=== PATIENT | male | born 1970 | race Caucasian/White ===

== ENCOUNTER 2019-06-19 18:18 | Inpatient (IN) | payer BC ==
[2019-06-19 18:31] VITALS: BMI 22.8
--- NOTE | 2019-06-19 18:33 | PDOC ---
Rapid Medical Evaluation Chief Complaint: Choking Sensation Time Seen by Provider: 06/19/19 18:28 Medical Evaluation: 06/19/19 18:29 I have performed a brief in-person evaluation of this patient. The patient presents with a chief complaint of:unable to swallow secretions after swallowing whole grape Pertinent physical exam findings: spitting but able to drink fluids I have ordered the following: soft tissue neck The patient will proceed to the ED for further evaluation. 06/19/19 18:32 Discharge Disposition - Diagnosis Sensation, choking - Referrals - Patient Instructions - Post Discharge Activity
[2019-06-19] MEDS ORDERED: GlUCAGON HUMAN RECOMBINANT 1 MG/VIAL IVPUSH ONE (19:55)
--- NOTE | 2019-06-19 19:57 | PDOC ---
History of Present Illness - General Chief Complaint: Choking Sensation Stated Complaint: CHOCKING SENSATION Time Seen by Provider: 06/19/19 18:28 - History of Present Illness Initial Comments: 06/19/19 19:56 49-year-old male without comorbidities has a sensation of a foreign body in his esophagus. Patient states she swallowed a whole grape and is unable to hold his secretions down. Past History - Past Medical History Allergies/Adverse Reactions: Allergies Allergy/AdvReac Type Severity Reaction Status Date / Time No Known Allergies Allergy Verified 06/19/19 18:31 COPD: No - Psycho Social/Smoking Cessation Hx Smoking History: Never smoked Hx Alcohol Use: Yes Drug/Substance Use Hx: No Review of Systems - Review of Systems ABD/GI: Yes: Vomiting *Physical Exam - Vital Signs Last Vital Signs Temp Pulse Resp BP Pulse Ox 98.2 F 67 16 136/89 96 06/19/19 18:27 06/19/19 18:27 06/19/19 18:27 06/19/19 18:27 06/19/19 18:27 - Physical Exam Comments: 06/19/19 19:57 GENERAL: The patient is awake, alert, and fully oriented, in no acute distress. HEAD: Normal with no signs of trauma. EYES: sclera anicteric, conjunctiva clear. ENT: Ears normal NECK: Normal range of motion LUNGS: Breath sounds equal, clear to auscultation bilaterally. No wheezes, and no crackles. HEART: S1 and S2 without murmur, rub or gallop. ABDOMEN: Soft, nontender, normoactive bowel sounds. No guarding, no rebound. No masses. EXTREMITIES: Normal range of motion, no edema. No clubbing or cyanosis. No cords, erythema, or tenderness. NEUROLOGICAL: Cranial nerves II through XII grossly intact. Normal speech, normal gait. PSYCH: Normal mood, normal affect. SKIN: Warm, Dry, normal turgor, no rashes or lesions noted. Medical Decision Making - Medical Decision Making 06/19/19 19:57 Glucagon ordered, case discussed with ER attending 06/19/19 21:20 No relief after second dose of glucagon GI on-call phoned 06/19/19 21:30 Patient admitted to GI for emergent endoscopy Discharge - Discharge Information Problems reviewed: Yes Clinical Impression/Diagnosis: Sensation, choking Condition: Guarded - Admission No - Follow up/Referral Referrals: ON STAFF,NOT [Primary Care Provider] - - Patient Discharge Instructions - Post Discharge Activity
[2019-06-19] MEDS ORDERED: GlUCAGON HUMAN RECOMBINANT 1 MG/VIAL ONE ×2 (20:05→20:52)
[2019-06-19] MEDS ORDERED: GLUCAGON 1 MG KIT IVPUSH ONE (20:49)
--- NOTE | 2019-06-19 21:32 | PDOC ---
History of Present Illness - General Chief Complaint: Choking Sensation Stated Complaint: CHOCKING SENSATION Time Seen by Provider: 06/19/19 18:28 - History of Present Illness Initial Comments: 06/19/19 21:31 Error on prior chart patient is being admitted Past History - Past Medical History Allergies/Adverse Reactions: Allergies Allergy/AdvReac Type Severity Reaction Status Date / Time No Known Allergies Allergy Verified 06/19/19 18:31 COPD: No - Psycho Social/Smoking Cessation Hx Smoking History: Never smoked Hx Alcohol Use: Yes Drug/Substance Use Hx: No Review of Systems - Review of Systems ABD/GI: Yes: Vomiting *Physical Exam - Vital Signs Last Vital Signs Temp Pulse Resp BP Pulse Ox 98.2 F 67 16 136/89 96 06/19/19 18:27 06/19/19 18:27 06/19/19 18:27 06/19/19 18:27 06/19/19 18:27 - Physical Exam Comments: 06/19/19 21:31 GENERAL: The patient is awake, alert, and fully oriented, in no acute distress. HEAD: Normal with no signs of trauma. EYES: sclera anicteric, conjunctiva clear. ENT: Ears normal NECK: Normal range of motion LUNGS: Breath sounds equal, clear to auscultation bilaterally. No wheezes, and no crackles. HEART: S1 and S2 without murmur, rub or gallop. ABDOMEN: Soft, nontender, normoactive bowel sounds. No guarding, no rebound. No masses. EXTREMITIES: Normal range of motion, no edema. No clubbing or cyanosis. No cords, erythema, or tenderness. NEUROLOGICAL: Cranial nerves II through XII grossly intact. Normal speech, normal gait. PSYCH: Normal mood, normal affect. SKIN: Warm, Dry, normal turgor, no rashes or lesions noted. ED Treatment Course - RADIOLOGY Radiology Studies Ordered: Category Date Time Status CHEST PA & LAT [RAD] Stat Radiology 06/19/19 21:29 Ordered - Medications Given in the ED: ED Medications Discontinued Medications Generic Name Dose Route Start Last Admin Trade Name Freq PRN Reason Stop Dose Admin Glucagon 0.5 mg 06/19/19 19:55 06/19/19 20:13 Glucagon - IVPUSH 06/19/19 19:56 0.5 mg ONCE ONE Administration Glucagon 1 mg 06/19/19 20:49 06/19/19 20:59 Glucagon - IVPUSH 06/19/19 20:50 1 mg ONCE ONE Administration Medical Decision Making - Medical Decision Making 06/19/19 21:32 Error on prior chart patient is being admitted Discharge - Discharge Information Problems reviewed: Yes Clinical Impression/Diagnosis: Sensation, choking Condition: Guarded - Admission Yes - Follow up/Referral Referrals: ON STAFF,NOT [Primary Care Provider] - - Patient Discharge Instructions - Post Discharge Activity
[2019-06-19 21:54] LABS: BASO % 1.3 % (0-2.0); EOS % 0.1 % (0-4.5); HEMATOCRIT 43.8 % (35.4-49); HEMOGLOBIN 14.7 GM/dL (11.7-16.9); MCH 30.3 pg (25.7-33.7); MCHC 33.7 g/dl (32.0-35.9); MEAN PLT VOLUME 9.9 fl (7.5-11.1); MONO % 3.2 % (3.8-10.2); NEUT % 86.4 % (42.8-82.8); PLATELET COUNT 243 K/MM3 (134-434); RBC 4.86 M/mm3 (4.00-5.60); WHITE BLOOD COUNT 13.8 K/mm3 (4.0-10.0)
--- NOTE | 2019-06-19 22:03 | PDOC ---
History of Present Illness - General Chief Complaint: Choking Sensation Stated Complaint: CHOCKING SENSATION Time Seen by Provider: 06/19/19 18:28 - History of Present Illness Initial Comments: 06/19/19 22:02 See prior note reason for this note is admitting doctor has changed Past History - Past Medical History Allergies/Adverse Reactions: Allergies Allergy/AdvReac Type Severity Reaction Status Date / Time No Known Allergies Allergy Verified 06/19/19 18:31 COPD: No - Psycho Social/Smoking Cessation Hx Smoking History: Never smoked Hx Alcohol Use: Yes Drug/Substance Use Hx: No Review of Systems - Review of Systems ABD/GI: Yes: Vomiting *Physical Exam - Vital Signs Last Vital Signs Temp Pulse Resp BP Pulse Ox 98.2 F 67 16 136/89 96 06/19/19 18:27 06/19/19 18:27 06/19/19 18:27 06/19/19 18:27 06/19/19 18:27 - Physical Exam Comments: 06/19/19 22:02 See prior note reason for this note admitting doctors change ED Treatment Course - LABORATORY CBC & Chemistry Diagram: 06/19/19 21:40 06/19/19 21:40 - ADDITIONAL ORDERS Additional order review: 06/19/19 21:40 RBC 4.86 MCV 90.0 MCHC 33.7 RDW 13.0 MPV 9.9 Neutrophils % 86.4 H Lymphocytes % 9.0 Monocytes % 3.2 L Eosinophils % 0.1 Basophils % 1.3 - RADIOLOGY Radiology Studies Ordered: Category Date Time Status CHEST PA & LAT [RAD] Stat Radiology 06/19/19 21:29 Ordered - Medications Given in the ED: ED Medications Discontinued Medications Generic Name Dose Route Start Last Admin Trade Name Flaquita PRN Reason Stop Dose Admin Glucagon 0.5 mg 06/19/19 19:55 06/19/19 20:13 Glucagon - IVPUSH 06/19/19 19:56 0.5 mg ONCE ONE Administration Glucagon 1 mg 06/19/19 20:49 06/19/19 20:59 Glucagon - IVPUSH 06/19/19 20:50 1 mg ONCE ONE Administration Discharge - Discharge Information Problems reviewed: Yes Clinical Impression/Diagnosis: Sensation, choking Condition: Guarded - Admission Yes - Follow up/Referral Referrals: ON STAFF,NOT [Primary Care Provider] - - Patient Discharge Instructions - Post Discharge Activity
[2019-06-19 22:05] LABS: INR 1.11 (0.83-1.09); PROTHROMBIN TIME (PATIENT) 13.1 SEC (9.7-13.0)
--- NOTE | 2019-06-19 22:16 | CON.GI ---
Consult Consult Specialty:: Gastroenterology Referred by:: YUKO Luke Reason for Consultation:: Food impaction - History of Present Illness Chief Complaint: Unable to swallow anything History of Present Illness: This 49M accidently swallowed a whole grape without chewing about 5:30PM. Since then he has been unable to swallow and has the sensation that something is stuck in his lower chest. He denies a cardiac history and is not dyspneic. He has chronic swallowing difficulties and had an EGD with Dr. Perez at the [facility] several years ago which he was told was completely normal. Nothing has ever become so stuck that he could not pass it with repeated swallow. He denies chronic heartburn. He has had two colonoscopies with Dr Perez with polyps being removed during the last exam. His grandfather had colon cancer. - History Source History Provided By: Patient Limitations to Obtaining History: No Limitations - Past Medical History Cardio/Vascular: Yes: Hyperlipdemia Gastrointestinal: Yes: Other (chronic dysphagia and colon polyps) - Past Surgical History Past Surgical History: Yes: None - Alcohol/Substance Use Hx Alcohol Use: Yes (wine every other day) History of Substance Use: reports: None - Smoking History Smoking history: Former smoker If you are a former smoker, when did you quit?: 1994 - Social History Usual Living Arrangement: With Spouse ADL: Independent Occupation: [employer] Place of : Other ([facility] [employer]) Came to .S. (year): age 29 Home Medications - Allergies Allergies/Adverse Reactions: Allergies Allergy/AdvReac Type Severity Reaction Status Date / Time No Known Allergies Allergy Verified 06/19/19 18:31 Family Medical History Family Hx Nuerologic Problems: Mother (had a CVA) Review of Systems - Review of Systems Constitutional: reports: No Symptoms Eyes: reports: No Symptoms HENT: reports: No Symptoms Neck: reports: No Symptoms Cardiovascular: reports: No Symptoms Respiratory: reports: No Symptoms Gastrointestinal: reports: Dysphagia Genitourinary: reports: No Symptoms Musculoskeletal: reports: No Symptoms Neurological: reports: No Symptoms Physical Exam-GI Vital Signs: Vital Signs Temperature 98.2 F 06/19/19 18:27 Pulse Rate 67 06/19/19 18:27 Respiratory Rate 16 06/19/19 18:27 Blood Pressure 136/89 06/19/19 18:27 O2 Sat by Pulse Oximetry (%) 96 06/19/19 18:27 Constitutional: Yes: Anxious Eyes: Yes: Conjunctiva Clear HENT: Yes: Normocephalic Neck: Yes: Trachea Midline Cardiovascular: Yes: Regular Rate and Rhythm Respiratory: Yes: CTA Bilaterally Gastrointestinal Inspection: Yes: WNL ...Auscultate: Yes: Normoactive Bowel Sounds ...Palpate: Yes: Soft, Other (nontender) ...Rectal Exam: Yes: Deferred Edema: No Neurological: Yes: Alert, Oriented Labs: CBC, BMP 06/19/19 21:40 INR, PTT INR 1.11 (0.83-1.09) H 06/19/19 21:40 Problem List - Problems (1) Food impaction of esophagus Code(s): T18.128A - FOOD IN ESOPHAGUS CAUSING OTHER INJURY, INITIAL ENCOUNTER Assessment/Plan Assessment - Esophageal obstruction by a grape. His history suggests eosinophilic esophagitis but he may have a Schatzki ring, stricture, achalasia ... Plan: - EGD YUNG. I have discussed EGD with food extraction in detail with Jeniffer and informed him of the risks of perforation, hemorrhage and aspiration. After I answered his questions he signed an informed consent. - NPO until then - Preop EKG, CXR and bloods ordered
[2019-06-19 22:25] LABS: ALBUMIN 4.7 g/dl (3.4-5.0); BILIRUBIN,TOTAL 1.5 mg/dL (0.2-1); CALCIUM 9.6 mg/dL (8.5-10.1); POTASSIUM 3.9 mmol/L (3.5-5.1)
[2019-06-19] MEDS ORDERED: PROPOFOL 20 ML ONE (23:06)
--- NOTE | 2019-06-19 23:46 | PN ---
Progress Note (short form) - Note Progress Note: GI Procedure NOte: Please see EGD report placed into the chart. The grape passed before the scope arrived, possibly due to esophageal relaxation under GET. A Schatzki ring and reflux esophagitis was found above a medium sized sliding hiatal hernia. Will order solids for breakfast. If tolerated can be discharged with referral to my office or to Dr Perez to arrange repeat EGD for dilation of the ring. Please discharge with pantoprazole and gaviscon. The findings will be discussed with the patient shortly with an emphasis on antireflux measures and to chew carefully. Problem List - Problems (1) Food impaction of esophagus Code(s): T18.128A - FOOD IN ESOPHAGUS CAUSING OTHER INJURY, INITIAL ENCOUNTER
[2019-06-20] MEDS ORDERED: MAG HYDROX/AL HYDROX/SIMETH 30 ML UNIT-DOSE CUP PO PRN
[2019-06-20] MEDS ORDERED: ACETAMINOPHEN 325 MG TABLET (FP) PO PRN (00:02)
[2019-06-20] MEDS ORDERED: DEXTROSE 5%-0.45% SALINE 1,000 ML IV SCH (00:15)
--- NOTE | 2019-06-20 07:39 | HP ---
CHIEF COMPLAINT: Sensation of foreign body in esophagus PCP: HISTORY OF PRESENT ILLNESS: Pt is a 49 y/o M with no significant past medical history who presented yesterday evening to [facility] due to difficulty swallowing. Pt endorses that around 5 pm yesterday he swallowed a whole grape and since then has not been able to hold his secretions down; pt states he felt a sensation of something geting lodged within his chest. Does endorse a history of swallowing problems but was never formally diagnosed with any GI pathology. Denies any other symptoms including headache, nausea/vomiting, chest pain, shortness of breath or fevers. This is the first time this has happened to him. PMH None SocialHx- Denies Tobacco use. Social Drinker SurgHx- Denies FH- Mother 2 CVAs, HLD NKDA ER course was notable for: (1) Glucagon x2 (2) (3) HOME MEDICATIONS: REVIEW OF SYSTEMS CONSTITUTIONAL: Absent: fever, chills, diaphoresis, generalized weakness, malaise, loss of appetite, weight change HEENT: Absent: rhinorrhea, nasal congestion, throat pain, throat swelling, difficulty swallowing, mouth swelling, ear pain, eye pain, visual changes CARDIOVASCULAR: Absent: chest pain, syncope, palpitations, irregular heart rate, lightheadedness , peripheral edema RESPIRATORY: Absent: cough, shortness of breath, dyspnea with exertion, orthopnea, wheezing, stridor, hemoptysis GASTROINTESTINAL: Absent: abdominal pain, abdominal distension, nausea, vomiting, diarrhea, constipation, melena, hematochezia GENITOURINARY: Absent: dysuria, frequency, urgency, hesitancy, hematuria, flank pain, genital pain MUSCULOSKELETAL: Absent: myalgia, arthralgia, joint swelling, back pain, neck pain SKIN: Absent: rash, itching, pallor HEMATOLOGIC/IMMUNOLOGIC: Absent: easy bleeding, easy bruising, lymphadenopathy, frequent infections ENDOCRINE: Absent: unexplained weight gain, unexplained weight loss, heat intolerance, cold intolerance NEUROLOGIC: Absent: headache, focal weakness or paresthesias, dizziness, unsteady gait, seizure, mental status changes, bladder or bowel incontinence PSYCHIATRIC: Absent: anxiety, depression, suicidal or homicidal ideation, hallucinations. PHYSICAL EXAMINATION Vital Signs - 24 hr 06/19/19 06/19/19 06/19/19 18:27 22:40 23:35 Temperature 98.2 F 97.7 F Pulse Rate 67 64 Respiratory 16 16 Rate Blood Pressure 136/89 135/85 O2 Sat by Pulse 96 98 97 Oximetry (%) 06/19/19 06/20/19 06/20/19 23:50 00:05 00:40 Temperature 97.7 F Pulse Rate 66 63 Respiratory 16 16 16 Rate Blood Pressure 130/76 135/85 O2 Sat by Pulse 97 97 Oximetry (%) 06/20/19 04:50 Temperature 98.6 F Pulse Rate 48 L Respiratory 20 Rate Blood Pressure 119/67 O2 Sat by Pulse Oximetry (%) GENERAL: NAD HEAD: AT/NC EYES: EOMI Sclera Clear EARS, NOSE, THROAT: MMM NECK: Normal range of motion, supple. LUNGS: CTA b/l no wheezing rhonchi or rales HEART: RRR S1S2 ABDOMEN: Soft NDNT LOWER EXTREMITIES: No peripheral edema. NEUROLOGICAL: Cranial nerves II-XII intact. Normal speech. SKIN: Warm, dry Laboratory Results - last 24 hr 06/19/19 06/19/19 06/19/19 21:40 21:40 21:40 WBC 13.8 H RBC 4.86 Hgb 14.7 Hct 43.8 MCV 90.0 MCH 30.3 MCHC 33.7 RDW 13.0 Plt Count 243 MPV 9.9 Absolute Neuts (auto) 11.9 H Neutrophils % 86.4 H Lymphocytes % 9.0 Monocytes % 3.2 L Eosinophils % 0.1 Basophils % 1.3 Nucleated RBC % 0 PT with INR 13.10 H INR 1.11 H Sodium 136 Potassium 3.9 Chloride 102 Carbon Dioxide 27 Anion Gap 6 L BUN 20.0 H Creatinine 1.0 Est GFR (CKD-EPI)AfAm 100.55 Est GFR (CKD-EPI)NonAf 86.76 Random Glucose 229 H Calcium 9.6 Total Bilirubin 1.5 H AST 24 ALT 37 Alkaline Phosphatase 65 Total Protein 8.0 Albumin 4.7 Blood Type Antibody Screen 06/19/19 21:40 WBC RBC Hgb Hct MCV MCH MCHC RDW Plt Count MPV Absolute Neuts (auto) Neutrophils % Lymphocytes % Monocytes % Eosinophils % Basophils % Nucleated RBC % PT with INR INR Sodium Potassium Chloride Carbon Dioxide Anion Gap BUN Creatinine Est GFR (CKD-EPI)AfAm Est GFR (CKD-EPI)NonAf Random Glucose Calcium Total Bilirubin AST ALT Alkaline Phosphatase Total Protein Albumin Blood Type A POSITIVE Antibody Screen Negative ASSESSMENT/PLAN: Pt is a 49 y/o M with no significant past medical history who presented yesterday evening to [facility] due to difficulty swallowing. #Food impaction of Esophagus -Pt with history of swallowing hole grape -Glucagon x 2 given to patient without relief -Emergent endoscopy performed. Grape passed prior to scope entry. -GI Dr Contreras on board. -Pt to be discharged on Pantoprazole and Gaviscon. #FEN D51/2NS@125cc/hr Monitor Electrolytes Soft Diet DVT ppx; EAM Dispo: D/C today Visit type - Emergency Visit Emergency Visit: Yes ED Registration Date: 06/19/19 Care time: The patient presented to the Emergency Department on the above date and was hospitalized for further evaluation of their emergent condition. - New Patient This patient is new to me today: Yes Date on this admission: 06/20/19 - Critical Care Critical Care patient: No ATTENDING PHYSICIAN STATEMENT I saw and evaluated the patient. I reviewed the resident's note and discussed the case with the resident. I agree with the resident's findings and plan as documented. SUBJECTIVE: OBJECTIVE: ASSESSMENT AND PLAN:
[2019-06-20 09:06] LABS: BASO % 0.6 % (0-2.0); EOS % 0.6 % (0-4.5); HEMATOCRIT 39.1 % (35.4-49); HEMOGLOBIN 13.6 GM/dL (11.7-16.9); LYMPH % 23.7 % (8-40); MCH 31.1 pg (25.7-33.7); MCHC 34.8 g/dl (32.0-35.9); MEAN CELL VOLUME 89.4 fl (80-96); MEAN PLT VOLUME 9.8 fl (7.5-11.1); MONO % 7.8 % (3.8-10.2); NEUT % 67.3 % (42.8-82.8); PLATELET COUNT 215 K/MM3 (134-434); RBC 4.38 M/mm3 (4.00-5.60); RDW 12.9 % (11.9-15.9); WHITE BLOOD COUNT 8.9 K/mm3 (4.0-10.0)
[2019-06-20 09:29] LABS: BLOOD UREA NITROGEN 17.2 mg/dL (7-18); CALCIUM 9.5 mg/dL (8.5-10.1); CREATININE 0.8 mg/dL (0.55-1.3); POTASSIUM 4.2 mmol/L (3.5-5.1)
[2019-06-20] MEDS ORDERED: PANTOPRAZOLE SODIUM 40 MG VIAL IVPUSH SCH (10:00)
[2019-06-20 10:01] VITALS: BP 117/64; PULSE 63; TEMP 98.5
--- NOTE | 2019-06-20 10:47 | EKG ---
Test Reason : Blood Pressure : / mmHG Vent. Rate : 057 BPM Atrial Rate : 057 BPM P-R Int : 160 ms QRS Dur : 096 ms QT Int : 432 ms P-R-T Axes : 050 019 022 degrees QTc Int : 420 ms SINUS BRADYCARDIA OTHERWISE NORMAL ECG NO PREVIOUS ECGS AVAILABLE Confirmed by ALLAN GILMAN, JEZ ([id number]) on 06/20/2019 10:47:22 AM Referred By: Confirmed By:JEZ LEMUS MD
--- NOTE | 2019-06-20 16:27 | PN ---
Teaching Attending Note Name of Resident: Nicanor Mcrae ATTENDING PHYSICIAN STATEMENT I saw and evaluated the patient. I reviewed the resident's note and discussed the case with the resident. I agree with the resident's findings and plan as documented. SUBJECTIVE: Feels great. No further globus sensation/impaction/regurgitation/ nausea/vomiting. OBJECTIVE: Afebrile, hemodynamically Stable. Last Vital Signs Temp Pulse Resp BP Pulse Ox 98.5 F 63 20 117/64 98 06/20/19 09:00 06/20/19 09:00 06/20/19 09:00 06/20/19 09:00 06/20/19 09:00 HEENT - Atraumatic, Normocephalic. Heart - S1, S2, RRR Lungs - clear to auscultation. No calf swelling/tenderness. Abdomen - Soft, non-tender. Bowel Sounds normal. Extremities - no edema, no calf tenderness. Laboratory Results - last 24 hr 06/19/19 06/19/19 06/19/19 21:40 21:40 21:40 WBC 13.8 H RBC 4.86 Hgb 14.7 Hct 43.8 MCV 90.0 MCH 30.3 MCHC 33.7 RDW 13.0 Plt Count 243 MPV 9.9 Absolute Neuts (auto) 11.9 H Neutrophils % 86.4 H Lymphocytes % 9.0 Monocytes % 3.2 L Eosinophils % 0.1 Basophils % 1.3 Nucleated RBC % 0 PT with INR 13.10 H INR 1.11 H Sodium 136 Potassium 3.9 Chloride 102 Carbon Dioxide 27 Anion Gap 6 L BUN 20.0 H Creatinine 1.0 Est GFR (CKD-EPI)AfAm 100.55 Est GFR (CKD-EPI)NonAf 86.76 Random Glucose 229 H Calcium 9.6 Total Bilirubin 1.5 H AST 24 ALT 37 Alkaline Phosphatase 65 Total Protein 8.0 Albumin 4.7 Blood Type Antibody Screen 06/19/19 06/20/19 06/20/19 21:40 07:25 07:25 WBC 8.9 RBC 4.38 Hgb 13.6 Hct 39.1 MCV 89.4 MCH 31.1 MCHC 34.8 RDW 12.9 Plt Count 215 MPV 9.8 Absolute Neuts (auto) 6.0 Neutrophils % 67.3 D Lymphocytes % 23.7 D Monocytes % 7.8 D Eosinophils % 0.6 D Basophils % 0.6 Nucleated RBC % 0 PT with INR INR Sodium Potassium Chloride Carbon Dioxide Anion Gap BUN Creatinine Est GFR (CKD-EPI)AfAm Est GFR (CKD-EPI)NonAf Random Glucose Calcium Total Bilirubin AST ALT Alkaline Phosphatase Total Protein Albumin Blood Type A POSITIVE A POSITIVE Antibody Screen Negative 06/20/19 07:25 WBC RBC Hgb Hct MCV MCH MCHC RDW Plt Count MPV Absolute Neuts (auto) Neutrophils % Lymphocytes % Monocytes % Eosinophils % Basophils % Nucleated RBC % PT with INR INR Sodium 139 Potassium 4.2 Chloride 104 Carbon Dioxide 28 Anion Gap 7 L BUN 17.2 Creatinine 0.8 Est GFR (CKD-EPI)AfAm 119.88 Est GFR (CKD-EPI)NonAf 103.43 Random Glucose 105 Calcium 9.5 Total Bilirubin AST ALT Alkaline Phosphatase Total Protein Albumin Blood Type Antibody Screen Discharge Medications Medication Instructions Recorded Pantoprazole Sodium [Protonix] 40 mg PO DAILY #30 tablet. 09/01/15 Mag Carb/Aluminum Hydrox/Algin 15 - 30 ml PO Q6H PRN #355 oz 06/20/19 [Gaviscon Liquid] Pantoprazole Sodium [Protonix -] 40 mg PO DAILY #30 tablet.ec 06/20/19 ASSESSMENT AND PLAN: 49 year old male with no significant PMH presented with difficulty swallowing and mid-esophageal pain/fullness due to esophageal food impaction. Esophageal Food Impaction sec to Schatzki's Ring at GE junction s/p Glucagon x 2. s/p EGD showing medum sliding hiatal hernia, Schatzki's ring, esophagitis (Bx taken to exclude eosinophilic esophagitis), food passed prior to scope insertion it appears. patient able to eat solids without discomfort or impaction post EGD and again this AM Medically stable for discharge home with GI follow up. GI recommends Gaviscon, PPI on DC with repeat EGD in 1 month.
--- NOTE | 2019-06-20 16:34 | DS ---
Physical Exam: SUBJECTIVE: Patient seen and examined this am. Feeling much better. Denies any complaints at this time. OBJECTIVE: Vital Signs Period Temp Pulse Resp BP Sys/Calixto Pulse Ox Last 24 Hr 97.7 F-98.6 F 48-67 16-20 117-136/64-89 96-98 PHYSICAL EXAM GENERAL: NAD HEAD: AT/NC EYES: EOMI Sclera Clear EARS, NOSE, THROAT: MMM NECK: Normal range of motion, supple. LUNGS: CTA b/l no wheezing rhonchi or rales HEART: RRR S1S2 ABDOMEN: Soft NDNT LOWER EXTREMITIES: No peripheral edema. NEUROLOGICAL: Cranial nerves II-XII intact. Normal speech. SKIN: Warm, dry LABS Laboratory Results - last 24 hr 06/19/19 06/19/19 06/19/19 21:40 21:40 21:40 WBC 13.8 H RBC 4.86 Hgb 14.7 Hct 43.8 MCV 90.0 MCH 30.3 MCHC 33.7 RDW 13.0 Plt Count 243 MPV 9.9 Absolute Neuts (auto) 11.9 H Neutrophils % 86.4 H Lymphocytes % 9.0 Monocytes % 3.2 L Eosinophils % 0.1 Basophils % 1.3 Nucleated RBC % 0 PT with INR 13.10 H INR 1.11 H Sodium 136 Potassium 3.9 Chloride 102 Carbon Dioxide 27 Anion Gap 6 L BUN 20.0 H Creatinine 1.0 Est GFR (CKD-EPI)AfAm 100.55 Est GFR (CKD-EPI)NonAf 86.76 Random Glucose 229 H Calcium 9.6 Total Bilirubin 1.5 H AST 24 ALT 37 Alkaline Phosphatase 65 Total Protein 8.0 Albumin 4.7 Blood Type Antibody Screen 06/19/19 06/20/19 06/20/19 21:40 07:25 07:25 WBC 8.9 RBC 4.38 Hgb 13.6 Hct 39.1 MCV 89.4 MCH 31.1 MCHC 34.8 RDW 12.9 Plt Count 215 MPV 9.8 Absolute Neuts (auto) 6.0 Neutrophils % 67.3 D Lymphocytes % 23.7 D Monocytes % 7.8 D Eosinophils % 0.6 D Basophils % 0.6 Nucleated RBC % 0 PT with INR INR Sodium Potassium Chloride Carbon Dioxide Anion Gap BUN Creatinine Est GFR (CKD-EPI)AfAm Est GFR (CKD-EPI)NonAf Random Glucose Calcium Total Bilirubin AST ALT Alkaline Phosphatase Total Protein Albumin Blood Type A POSITIVE A POSITIVE Antibody Screen Negative 06/20/19 07:25 WBC RBC Hgb Hct MCV MCH MCHC RDW Plt Count MPV Absolute Neuts (auto) Neutrophils % Lymphocytes % Monocytes % Eosinophils % Basophils % Nucleated RBC % PT with INR INR Sodium 139 Potassium 4.2 Chloride 104 Carbon Dioxide 28 Anion Gap 7 L BUN 17.2 Creatinine 0.8 Est GFR (CKD-EPI)AfAm 119.88 Est GFR (CKD-EPI)NonAf 103.43 Random Glucose 105 Calcium 9.5 Total Bilirubin AST ALT Alkaline Phosphatase Total Protein Albumin Blood Type Antibody Screen HOSPITAL COURSE: Date of Admission:06/19/19 Pt is a 49 y/o M with no significant past medical history who presented yesterday evening to [facility] due to difficulty swallowing. Pt endorses swallowing a grape whole. While in ED, pt was given Glucagon to relax his esophagus. Pt was evaluated by and underwent an EGD with Dr Contreras. Pt was found to have a schatzki ring. It appeared that the grape passed before introduction of the scope. Pt was discharged with a prescription for Protonix and Gaviscon. Date of Discharge: 06/20/19 Discharge Summary Problems reviewed: Yes Reason For Visit: CHOCKING SENSATION Condition: Improved - Instructions Diet, Activity, Other Instructions: You presented to the Hospital due to a sensation for a foreign body being stuck in your throat and chest. 2 medications have been sent to your pharmacy- [facility]. Pantoprazole and Gaviscon Please follow up with Dr Contreras this week. A Referral has been provided for you in your discharge papers. Please return to the emergency department immediately if you begin to experience difficulty swallowing again, chest pain, shortness of breath or any other abnormal symptom. Referrals: Lawrence Contreras MD [Staff Physician] - ON STAFF,NOT [Primary Care Provider] - Disposition: HOME - Home Medications Comprehensive Discharge Medication List: Ambulatory Orders Pantoprazole Sodium [Protonix] 40 mg PO DAILY #30 tablet. 09/01/15 Mag Carb/Aluminum Hydrox/Algin [Gaviscon Liquid] 15 - 30 ml PO Q6H PRN #355 oz 06/20/19 Pantoprazole Sodium [Protonix -] 40 mg PO DAILY #30 tablet.ec 06/20/19 ATTENDING PHYSICIAN STATEMENT I saw and evaluated the patient. I reviewed the resident's note and discussed the case with the resident. I agree with the resident's findings and plan as documented. SUBJECTIVE: OBJECTIVE: ASSESSMENT AND PLAN:
--- NOTE | 2019-06-22 18:59 | PATH ---
Surgical Pathology Report Patient Name: JINNY PERDUE [facility]. Rec. #: [id number] /Age/Gender: 1970 (Age: 49) / M Account: [id number] Location: [address] [place] [address]/[facility] Taken: 06/19/2019 Received: 06/20/2019 Reported: 06/22/2019 Physicians: Ayaz Layne M.D. Specimen(s) Received ESOPHAGUS MID AND DISTAL Clinical History Choking sensation Final Diagnosis MID AND DISTAL ESOPHAGUS, BIOPSY: ESOPHAGEAL MUCOSA WITH FOCAL REFLUX ESOPHAGITIS. NO HISTOLOGIC EVIDENCE OF EOSINOPHILIC ESOPHAGITIS. Electronically Signed Jr Stinson M.D. Gross Description Received in formalin, labeled "mid and distal esophagus" are 2 bernal, irregular portions of soft tissue measuring 0.2 and 0.3 cm. in greatest dimension. The specimens are submitted in toto in one cassette. /06/20/2019 saudi06/20/2019
== END 2019-06-20 10:49 | disposition home or self-care (01) | DRG 392 ==
LOC: JER 18:18 → JERFT 18:18 → JERBED 22:03 → J6S 06-20 00:15
PROVIDERS: ADMIT Internal Medicine
PROC: 0DB58ZX Excision of Esophagus, Via Natural or Artificial Opening Endoscopic, Diagnostic (ICD-10-PCS; principal; 2019-06-19 22:52)
DX: K22.2 Esophageal obstruction (principal); T18.128A Food in esophagus causing other injury, initial encounter; K44.9 Diaphragmatic hernia without obstruction or gangrene; K21.0 Gastro-esophageal reflux disease with esophagitis; X58.XXXA Exposure to other specified factors, initial encounter; Y93.9 Activity, unspecified; Y92.89 Other specified places as the place of occurrence of the external cause
CPT/HCPCS: 36415; 70360-TC-FY; 80048; 80053; 85025; 85610; 86850; 86900; 86901; 88305-TC; 93005; 93010; 94760; 99284-25

== ENCOUNTER 2020-04-26 16:34 | Emergency (ER) | payer BC ==
--- OUTSIDE RECORDS SUMMARY | 2020-04-26 16:39 | XMS ---
:1970 Author Organization [facility] Support Name Relationship Address Phone [address] [place] [address] [address] [facility] [place] [address] Re-disclosure Warning The records that you are about to access may contain information from federally- assisted alcohol or drug abuse programs. If such information is present, then the following federally mandated warning applies: This information has been disclosed to you from records protected by federal confidentiality rules (42 CFR part 2). The federal rules prohibit you from making any further disclosure of this information unless further disclosure is expressly permitted by the written consent of the person to whom it pertains or as otherwise permitted by 42 CFR part 2. A general authorization for the release of medical or other information is NOT sufficient for this purpose. The Federal rules restrict any use of the information to criminally investigate or prosecute any alcohol or drug abuse patient.The records that you are about to access may contain highly sensitive health information, the redisclosure of which is protected by Article 27-F of the [facility] Public Health law. If you continue you may haveaccess to information: Regarding HIV / AIDS; Provided by facilities licensed or operated by the [facility] Office of Mental Health; or Provided by the [facility] Office for People With Developmental Disabilities. If such information is present, then the following [facility] mandated warning applies: This information has been disclosed to you from confidential records which are protected by state law. State law prohibits you from making any further disclosure of this information without the specific written consent of the person to whom it pertains, or as otherwise permitted by law. Any unauthorized further disclosure in violation of state law may result in a fine or skilled nursing sentence or both. A general authorization for the release of medical or other information is NOT sufficient authorization for further disclosure. Insurance Providers Payer name Policy type / Policy ID Covered Covered constitution party's Policy Plan Coverage type constitution party ID relationship to [employer] Information [employer] OUT OF [id number] [id number]
--- NOTE | 2020-04-26 17:20 | TELE ---
HPI Do you have fever,cough or shortness of breath?: No - General Reason For Visit: COVID TESTING Past History - Travel History Traveled outside of the country in the last 30 days: No Close contact w/someone who was outside of country & ill: No - Medical History Allergies/Adverse Reactions: Allergies Allergy/AdvReac Type Severity Reaction Status Date / Time No Known Allergies Allergy Verified 06/19/19 18:31 Home Medications: Ambulatory Orders Pantoprazole Sodium [Protonix] 40 mg PO DAILY #30 tablet. 09/01/15 Mag Carb/Aluminum Hydrox/Algin [Gaviscon Liquid] 15 - 30 ml PO Q6H PRN #355 oz 06/20/19 Pantoprazole Sodium [Protonix -] 40 mg PO DAILY #30 tablet.ec 06/20/19 Anemia: No Asthma: No Cancer: No Cardiac Disorders: No CVA: No COPD: No CHF: No Dementia: No Diabetes: No GI Disorders: No Disorders: No HTN: No Hypercholesterolemia: Yes (NO MED) Liver Disease: No Seizures: No Thyroid Disease: No - Surgical History Abdominal Surgery: No Appendectomy: No Cardiac Surgery: No Cholecystectomy: No Lung Surgery: No Neurologic Surgery: No Orthopedic Surgery: No - Psycho-Social/Smoking History Smoking History: Former smoker Have you smoked in the past 12 months: No If you are a former smoker, when did you quit?: 10 Review of Systems - Review of Systems Able to Perform ROS?: Yes Comments:: 04/26/20 17:16 CONSTITUTIONAL: Absent: fever, chills, diaphoresis, generalized weakness, malaise, loss of appetite HEENT: Absent: rhinorrhea, nasal congestion, throat pain, throat swelling, difficulty swallowing, mouth swelling, ear pain, eye pain, visual Changes CARDIOVASCULAR: Absent: chest pain, loss of consciousness, palpitations, irregular heart rate, peripheral edema RESPIRATORY: Absent: cough, shortness of breath, dyspnea with exertion, orthopnea, wheezing, stridor, hemoptysis GASTROINTESTINAL: Absent: abdominal pain, abdominal distension, nausea, vomiting, diarrhea, constipation, melena, hematochezia SKIN: Absent: rash, itching, pallor NEUROLOGIC: Absent: headache, focal weakness or paresthesias, dizziness, unsteady gait, seizure, mental status changes, bladder or bowel incontinence PSYCHIATRIC: Absent: anxiety, depression, suicidal or homicidal ideation, hallucinations. Limited Polish proficient: No *Physical Exam - Physical Exam 04/26/20 17:17 CONSTITUTIONAL: Absent: fever, chills, diaphoresis, generalized weakness, malaise, loss of appetite HEENT: Absent: rhinorrhea, nasal congestion, throat pain, throat swelling, difficulty swallowing, mouth swelling, ear pain, eye pain, visual Changes CARDIOVASCULAR: Absent: chest pain, loss of consciousness, palpitations, irregular heart rate, peripheral edema RESPIRATORY: Absent: cough, shortness of breath, dyspnea with exertion, orthopnea, wheezing, stridor, hemoptysis GASTROINTESTINAL: Absent: abdominal pain, abdominal distension, nausea, vomiting, diarrhea, constipation, melena, hematochezia SKIN: Absent: rash, itching, pallor NEUROLOGIC: Absent: headache, focal weakness or paresthesias, dizziness, unsteady gait, seizure, mental status changes, bladder or bowel incontinence PSYCHIATRIC: Absent: anxiety, depression, suicidal or homicidal ideation, hallucinations. - Medical Decision Making 04/26/20 17:17 The patient is a 50-year-old male no past medical history who presents to the [facility] for COVID testing. He states he is having dental work on Tuesday and would like a COVID test prior to his procedure. He has no symptoms at this time. He states his son also had a possible exposure at school. A/P: Need for COVID swab On exam patient is in no acute distress on video chat We will order COVID swab. Patient is already at the [facility]. Isolation precautions given. Discharge Diagnosis at time of Disposition: Counseled about COVID-19 virus infection - Referrals Follow-up Referral(s): Joaquim De La Garza MD [Primary Care Provider] - - Patient Instructions
== END 2020-04-26 17:20 | disposition home or self-care (01) ==
LOC: JVIRT 16:34
DX: Z11.59 Encounter for screening for other viral diseases (principal)
CPT/HCPCS: Q3014-GT; U0003

== ENCOUNTER 2020-11-03 08:03 | Day surgery (SDC) | payer BC ==
[2020-10-29 15:37] VITALS: BMI 22.8
[2020-11-03] MEDS ORDERED: PROPOFOL 20 ML ONE ×2 (09:00)
[2020-11-03] MEDS ORDERED: LIDOCAINE HCL/PF 2% SDV 5ML VIAL ONE (09:00)
[2020-11-03 10:22] VITALS: TEMP 98.2
[2020-11-03 10:38] VITALS: BP 110/58; PULSE 50
== END 2020-11-03 10:46 | disposition home or self-care (01) ==
LOC: FASU-ENDO 08:03
PROVIDERS: ATTEND Internal Medicine Gastroenterology
PROC: 0DJD8ZZ Inspection of Lower Intestinal Tract, Via Natural or Artificial Opening Endoscopic (ICD-10-PCS; principal; 2020-11-03 09:58)
DX: Z12.11 Encounter for screening for malignant neoplasm of colon (principal)